=== PATIENT | female | born 1975 | race Caucasian/White ===

== ENCOUNTER 2018-04-01 11:59 | Emergency (ER) | payer BC ==
--- NOTE | 2018-04-01 13:36 | ED Physician Documentation ---
PD HPI HEADACHE - Stated complaint Stated Complaint: HEADACHE/VISION CHANGE - Chief complaint Chief Complaint: Cardiac - History obtained from History obtained from: Patient - History of Present Illness Timing - onset: Other (Headaches on and off for 1 month. Has been seeing cardiology and GI for ongoing GI issues and palpitations without clear dx. Was on nortyptiline and taken off and started cymbalta with increased anterior temporal COLE, L>R. Headaches are gradual in onset.) Timing - details: Gradual onset (Aches are gradual in onset and associated with a variety of visual phenomenon that she describes as water colors or splashes as well as stars around lights. Her headache is only moderate at this juncture. Her actual main concern was that her blood pressure was very high prior to arrival.) Review of Systems Constitutional: denies: Fever, Chills Eyes: reports: Photophobia. denies: Loss of vision, Decreased vision Nose: denies: Rhinorrhea / runny nose, Congestion Cardiac: reports: Reviewed and negative Respiratory: reports: Reviewed and negative GI: denies: Nausea, Vomiting, Diarrhea : reports: Reviewed and negative Musculoskeletal: reports: Neck pain (chronic) PD PAST MEDICAL HISTORY - Past Medical History Past Medical History: Yes GI: Other ([facility]) - Present Medications Home Medications: Ambulatory Orders Medication Instructions Recorded Confirmed Albuterol Sulf [Ventolin Hfa 0 puffs 04/01/18 Inhaler] Ethinyl Estradiol/Drospirenone 1 tab DAILY 04/01/18 04/01/18 [[place] 3 mg-0.02 mg Tablet] Hycosamine 0.125 mg 04/01/18 Omeprazole 40 mg DAILY 04/01/18 04/01/18 Prochlorperazine Maleate 10 mg 04/01/18 Propranolol HCl 20 mg PO TID #90 tablet 04/01/18 - Allergies Allergies/Adverse Reactions: Allergies Allergy/AdvReac Type Severity Reaction Status Date / Time Opioids - Morphine Analogues AdvReac Emesis Verified 04/01/18 12:12 Sulfa (Sulfonamide AdvReac Emesis Verified 04/01/18 12:12 Antibiotics) - Family History Family history: reports: Non contributory PD ED PE NORMAL - Vitals Vital signs reviewed: Yes - General General: Alert and oriented X 3, No acute distress - HEENT HEENT: PERRL, EOMI, Ears normal - Neck Neck: Supple, no meningeal sign, No bony TTP - Cardiac Cardiac: RRR, No murmur - Respiratory Respiratory: No respiratory distress, Clear bilaterally - Abdomen Abdomen: Normal bowel sounds, Soft - Derm Derm: Normal color, Warm and dry - Extremities Extremities: No edema, No calf tenderness / cord - Neuro Neuro: Alert and oriented X 3, 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, Normal speech Eye Opening: Spontaneous Motor: Obeys Commands Verbal: Oriented GCS Score: 15 - Psych Psych: Normal mood, Normal affect Results - Vitals Vitals: Vital Signs - 24 hr 04/01/18 04/01/18 12:07 14:47 Temperature 36.2 C L Heart Rate 74 77 Respiratory 16 20 Rate Blood Pressure 139/97 H 131/95 H O2 Saturation 97 98 Oxygen O2 Source Room air - Labs Labs: Laboratory Tests 04/01/18 04/01/18 12:22 13:52 Sodium 139 Potassium 3.7 Chloride 101 Carbon Dioxide 25 Anion Gap 13.0 BUN 15 Creatinine 0.7 Estimated GFR (MDRD) 92 Glucose 98 Calcium 9.2 Total Bilirubin 0.7 AST 95 H ALT 143 H Alkaline Phosphatase 109 Total Protein 7.4 Albumin 3.7 Globulin 3.7 Albumin/Globulin Ratio 1.0 Lipase 41 Urine Color YELLOW Urine Clarity CLEAR Urine pH 6.0 Ur Specific [place] >=1.030 H Urine Protein NEGATIVE Urine Glucose (UA) NEGATIVE Urine Ketones NEGATIVE Urine Occult Blood NEGATIVE Urine Nitrite NEGATIVE Urine Bilirubin NEGATIVE Urine Urobilinogen 1 (NORMAL) Ur Leukocyte Esterase NEGATIVE Ur Microscopic Review NOT INDICATED Urine Culture Comments NOT INDICATED Urine HCG, Qual NEGATIVE - Rads (name of study) Head CT Radiology: EMP read contemporaneously (neg) PD MEDICAL DECISION MAKING - ED course ED course: This is a 42-year-old woman with intermittent headaches, most consistent with migrainous etiology. Her pain is much better now and she declined medications for it while in the emergency department. Given her ongoing problems with hypertension, palpitations, it seems like giving her propranolol might kill 3 birds with one stone. Departure - Departure Disposition: 01 Home, Self Care Clinical Impression: Migraine Qualifiers: Migraine type: with aura Status migrainosus presence: without status migrainosus Intractability: not intractable Qualified Code(s): G43.109 - Migraine with aura, not intractable, without status migrainosus Condition: Good Record reviewed to determine appropriate education?: Yes Instructions: ED Headache Migraine Prescriptions: Propranolol HCl 20 mg PO TID #90 tablet Comments: Report to your physician on return home whether the propranolol is helping with your headaches or not. Return for new or worsening symptoms.
[2018-04-01 14:10] LABS: ALBUMIN 3.7 g/dL (3.2-5.5); BILIRUBIN,TOTAL 0.7 mg/dL (0.2-1.0); CALCIUM 9.2 mg/dL (8.5-10.3); CREATININE 0.7 mg/dL (0.4-1.0); TOTAL PROTEIN 7.4 g/dL (6.7-8.2)
[2018-04-01 14:30] LABS: BILIRUBIN,URINE NEGATIVE (NEGATIVE); GLUCOSE, URINE (UA) NEGATIVE (NEGATIVE); KETONES,URINE (UA) NEGATIVE (NEGATIVE); LEUKOCYTE ESTERASE, URINE NEGATIVE (NEGATIVE); NITRITE,URINE NEGATIVE (NEGATIVE); OCCULT BLOOD,URINE NEGATIVE (NEGATIVE); PROTEIN,URINE NEGATIVE (NEGATIVE); UROBILINOGEN,URINE 1 (NORMAL) E.U./dL (NORMAL)
[2018-04-01 14:32] LABS: CLARITY,URINE CLEAR (CLEAR); HCG UR QUAL NEGATIVE
--- NOTE | 2018-04-01 15:33 | CT Report ---
Reason: headache Procedure Date: 04/01/2018 Accession Number: [id number] / [id number] Procedure: CT - Head W/O CPT Code: FULL RESULT: EXAM: CT HEAD EXAM DATE: 04/01/2018 02:08 PM. CLINICAL HISTORY: Headache. COMPARISON: None. TECHNIQUE: Multiaxial CT images were obtained from the foramen magnum to the vertex. Reformats: Sagittal and coronal. IV contrast: None. In accordance with CT protocol optimization, one or more of the following dose reduction techniques were utilized for this exam: automated exposure control, adjustment of mA and/or KV based on patient size, or use of iterative reconstructive technique. FINDINGS: Parenchyma: No intraparenchymal hemorrhage. No evidence of mass, midline shift, or CT findings of infarction. [place]-white differentiation is distinct. Extraaxial Spaces: Normal for age. No subdural or epidural collections identified. Ventricles: Normal in size and position. Sinuses and Orbits: Imaged paranasal sinuses, orbits, and mastoids show no significant abnormality. Bones: No evidence of fracture or calvarial defect. Other: None. IMPRESSION: Normal head CT. [facility]
[2018-04-01 16:17] VITALS: BP 134/97
== END 2018-04-01 16:05 | disposition home or self-care (01) ==
LOC: ED 11:59
DX: G43.109 Migraine with aura, not intractable, without status migrainosus (principal)
CPT/HCPCS: 36415; 70450; 80053; 81001; 81003; 81025; 83690; 85025; 87086; 99283